=== PATIENT | male | born 1960 | race Hispanic/Latino ===

== ENCOUNTER 2022-10-09 16:58 | Emergency (ER) | payer OTHER, BC ==
[~2022-10-09] VITALS: Ht 177.8 cm; Wt 104.3 kg
[2022-10-09 17:30] VITALS: BP 135/83
== END 2022-10-09 20:20 | disposition home or self-care (01) ==
LOC: EDH 16:58
DX: S60.521A Blister (nonthermal) of right hand, initial encounter (principal); V89.2XXA Person injured in unspecified motor-vehicle accident, traffic, initial encounter; Y93.I9 Activity, other involving external motion; Y92.488 Other paved roadways as the place of occurrence of the external cause; Y99.8 Other external cause status